=== PATIENT | male | born 1985 | race Hispanic/Latino ===

== ENCOUNTER 2017-11-17 12:29 | Emergency (ER) | payer OTHER ==
[2017-11-17 12:49] VITALS: BP 137/96; PULSE 89; RESP 16; TEMP 98; O2SAT 99
--- NOTE | 2017-11-17 13:40 | ED PDOC ---
HPI: Abdomen Time Seen by Provider: 11/17/17 13:25 Chief Complaint (Nursing): Abdominal Pain Chief Complaint (Provider): abd pain History Per: Patient Additional Complaint(s): 32-year-old male with history of type 1 diabetes presents to emergency department with right lower quadrant pain and gross hematuria that started earlier today. Patient denies fever or chills. He denies any nausea or vomiting. Patient is tolerating liquids and solids. He denies any associated back pain. PMD: none Past Medical History Reviewed: Historical Data, Nursing Documentation, Vital Signs Vital Signs: Last Vital Signs Temp 98.0 F 11/17/17 12:47 Pulse 89 11/17/17 12:47 Resp 16 11/17/17 12:47 BP 137/96 H 11/17/17 12:47 Pulse Ox 99 11/17/17 14:20 - Medical History PMH: Diabetes (Type 1) - Surgical History Surgical History: No Surg Hx - Family History Family History: States: No Known Family Hx - Living Arrangements Living Arrangements: With Family - Social History Current smoker - smoking cessation education provided: No Alcohol: None Drugs: Denies - Home Medications Home Medications: Ambulatory Orders Medication Instructions Recorded Ibuprofen [Motrin Tab] 800 mg PO Q8 PRN #20 tab 11/17/17 Levofloxacin [Levaquin] 500 mg PO DAILY #7 tablet 11/17/17 Tamsulosin [Flomax] 0.4 mg PO DAILY #7 cap 11/17/17 traMADol [Ultram] 50 mg PO QID #15 tab 11/17/17 - Allergies Allergies/Adverse Reactions: Allergies Allergy/AdvReac Type Severity Reaction Status Date / Time No Known Allergies Allergy Verified 11/17/17 12:47 Review of Systems ROS Statement: Except As Marked, All Systems Reviewed And Found Negative Constitutional: Negative for: Fever, Chills Cardiovascular: Negative for: Chest Pain Respiratory: Negative for: Cough Gastrointestinal: Positive for: Abdominal Pain (RLQ). Negative for: Nausea, Vomiting Genitourinary Male: Positive for: Hematuria. Negative for: Incontinence, Scrotal Pain, Penile Pain Musculoskeletal: Negative for: Back Pain Physical Exam - Reviewed Nursing Documentation Reviewed: Yes Vital Signs Reviewed: Yes - Physical Exam Appears: Positive for: Well, Non-toxic, No Acute Distress Skin: Negative for: Rash Eye Exam: Positive for: Normal appearance Cardiovascular/Chest: Positive for: Regular Rate, Rhythm Respiratory: Positive for: Normal Breath Sounds Gastrointestinal/Abdominal: Positive for: Soft, Tenderness (RLQ). Negative for : Distended, Guarding, Rebound Back: Negative for: L CVA Tenderness, R CVA Tenderness Extremity: Positive for: Normal ROM Neurologic/Psych: Positive for: Alert, Oriented - Laboratory Results Result Diagrams: 11/17/17 14:25 11/17/17 14:25 Urine dip results: Positive for: Leukocyte Esterase (large), Blood (large), Nitrate (positive). Negative for: Ketones, Glucose, Bilirubin, Protein - ECG O2 Sat by Pulse Oximetry: 99 Pulse Ox Interpretation: Normal - Other Rad CT abd and pelvis without contrast X-Ray: Read By Radiologist X-Ray Interpretation: see below Medical Decision Making Medical Decision Makin32 year old with hematuria and abd pain Plan: Urine dip CBC CMP CT abd and pelvis without contrast IVF IV toradol CT: FINDINGS: LOWER THORAX: Lung bases clear. No infiltrate effusion or basilar pneumothorax. There is a tiny hiatal hernia. Heart size within range of normal. No significant pericardial effusion. LIVER: Liver exhibits normal size measuring approximately 18 cm in CC dimension. No obvious hepatic mass collection or calcification. GALLBLADDER AND BILE DUCTS: Gallbladder is physiologically distended. No evidence of intraluminal gallbladder calculi. PANCREAS: The pancreas is slightly atrophic. No obvious pancreatic masses collections or calcifications. No significant pancreatic ductal dilatation. SPLEEN: Spleen is mildly enlarged measuring nearly 13 cm in AP dimension. No obvious splenic mass collection or calcification seen on this noncontrast study. ADRENALS: There are no adrenal lesions. KIDNEYS AND URETERS: The kidneys demonstrate symmetric size. There is a punctate calcifications seen upper pole right kidney. Mild right and sided hydronephrosis secondary to a tiny approximately 3.3 mm proximal right ureteral calculus there are several small calculi seen in the left kidney, the largest in the midpole left kidney measuring approximately 3.2 cm. No evidence of left-sided hydronephrosis. BLADDER: In the urinary bladder is incompletely distended which in part account slight thick-walled appearance. Muscular hypertrophy may contribute Cystitis would be less likely in a male patient though not completely excluded. REPRODUCTIVE: Unremarkable as visualized. APPENDIX: Normal-appearing retrocecal appendix best seen on axial image number [id number]. BOWEL: Evaluation of the bowel is limited due to the lack of oral contrast. Stomach is distended with food debris liquid and air. Visualized loops of small bowel exhibit normal contour and caliber. No evidence of acute mechanical small bowel obstruction. . No definitive evidence of abnormal mural wall thickening. . PERITONEUM: Unremarkable. No fluid collection. No free air. LYMPH NODES: Unremarkable. No enlarged lymph nodes. VASCULATURE: Unremarkable. No aortic aneurysm. BONES: Minor on multilevel degenerative spondylosis of the lower thoracic spine with chronic appearing endplate degenerative changes/ Schmorl's node formation. No acute compression fractures. Minor chronic appearing anterior stature loss of the T9, T10 and T11 segments. OTHER FINDINGS: None. IMPRESSION: Nephrolithiasis as described. . Small approximately 3.3 mm calculus proximal right ureter with mild right-sided hydronephrosis. Urinary bladder wall is slightly thickened in part due to incomplete distention and possible muscular hypertrophy. Cystitis not excluded. Mild splenomegaly. Liver is upper limits of normal in size. Hepatomegaly. Patient reports improvement of pain after Toradol was given. He is aware of all diagnostic testing results, all questions answered. 1 g IV Rocephin administered in the ED. Prescriptions provided for Flomax, Naprosyn and Levaquin. Advised fluids, rest and urology follow-up in one to 2 days, referral provided. Disposition - Clinical Impression Clinical Impression: Renal colic, Urinary tract infection - Patient ED Disposition Is Patient to be Admitted: No Counseled Patient/Family Regarding: Studies Performed, Diagnosis, Need For Followup, Rx Given - Disposition Referrals: Carlo Miles Jr., MD [Staff Provider] - Disposition: Routine/Home Disposition Time: 17:43 Condition: STABLE Additional Instructions: TAKE RX MEDS DIRECTED. DRINK PLENTY OF FLUIDS. USE STRAINER WHEN URINATING. FOLLOW UP IN 1-2 DAYS WITH UROLOGIST OR RETURN ANY TIME TO ED IF ACUTELY WORSE. Prescriptions: Ibuprofen [Motrin Tab] 800 mg PO Q8 PRN #20 tab PRN Reason: Pain, Moderate (4-7) Levofloxacin [Levaquin] 500 mg PO DAILY #7 tablet Tamsulosin [Flomax] 0.4 mg PO DAILY #7 cap traMADol [Ultram] 50 mg PO QID #15 tab Instructions: Renal Colic (DC), Urinary Tract Infection, Adult (DC) Forms: [employer] (Greek), [facility] ED School/Work Excuse Results - Lab Results Lab Results: 11/17/17 11/17/17 11/17/17 14:25 14:25 14:00 WBC 12.6 H RBC 5.62 Hgb 17.1 Hct 50.5 MCV 89.9 MCH 30.4 MCHC 33.8 RDW 13.2 Plt Count 243 MPV 8.1 Neut % (Auto) 89.6 H Lymph % (Auto) 4.2 L Roberts % (Auto) 5.6 Eos % (Auto) 0.2 Baso % (Auto) 0.4 Neut # (Auto) 11.3 H Lymph # (Auto) 0.5 L Roberts # (Auto) 0.7 Eos # (Auto) 0.0 Baso # (Auto) 0.1 Neutrophils % (Manual) 89 H Band Neutrophils % 1 Lymphocytes % (Manual) 4 L Monocytes % (Manual) 6 Platelet Estimate Normal RBC Morphology Normal Sodium 140 Potassium 4.1 Chloride 98 Carbon Dioxide 25 Anion Gap 21 H BUN 12 Creatinine 0.8 Est GFR ( Amer) > 60 Est GFR (Non-Af Amer) > 60 Random Glucose 186 H Calcium 9.3 Total Bilirubin 1.3 AST 23 ALT 35 Alkaline Phosphatase 72 Total Protein 7.8 Albumin 4.5 Globulin 3.4 Albumin/Globulin Ratio 1.3 Urine Color Red Urine Clarity Turbid Urine pH 6.0 Ur Specific Crocker 1.026 Urine Protein 100 Urine Glucose (UA) 150 Urine Ketones 80 Urine Blood Large Urine Nitrate Negative Urine Bilirubin Negative Urine Urobilinogen 0.2 Ur Leukocyte Esterase Negative Urine RBC (Auto) 40069 H Urine Microscopic WBC 198 H
[2017-11-17] MEDS: Sodium Chloride 0.9% 1,000 ML IV STA (14:31)
[2017-11-17 14:51] LABS: BASO # 0.1 K/uL (0.0-0.2); BASO % 0.4 % (0.0-2.0); EOS % 0.2 % (0.0-4.0); HEMOGLOBIN 17.1 g/dL (12.0-18.0); LYMPH # 0.5 K/uL (1.0-4.3); LYMPH % 4.2 % (20.0-40.0); MEAN CELL VOLUME 89.9 fl (80.0-94.0); MEAN CORPUSCULAR HEMOGLOBIN 30.4 pg (27.0-31.0); MEAN CORPUSCULAR HGB CONC 33.8 g/dL (33.0-37.0); MEAN PLATELET VOLUME 8.1 fl (7.2-11.7); MONO # 0.7 K/uL (0.0-0.8); MONO % 5.6 % (0.0-10.0); NEUT # 11.3 K/uL (1.8-7.0); NEUT % 89.6 % (50.0-75.0); NRBC % 0.1 % (0.0-0.0); PLATELET COUNT 243 K/uL (130-400); RBC 5.62 Mil/uL (4.40-5.90); RED CELL DISTRIBUTION WIDTH 13.2 % (11.5-14.5); WHITE BLOOD COUNT 12.6 K/uL (4.8-10.8)
[2017-11-17 15:00] LABS: ALB/GLOB RATIO 1.3 (1.0-2.1); ALBUMIN 4.5 g/dL (3.5-5.0); ALT/SGPT 35 U/L (21-72); AST/SGOT 23 U/L (17-59); BLOOD UREA NITROGEN 12 mg/dl (9-20); CALCIUM 9.3 mg/dL (8.4-10.2); GFR AFRICAN-AMERICAN > 60; GFR NON-AFRICAN AMERICAN > 60
[2017-11-17 15:06] LABS: URINE COLOR RED (YELLOW)
[2017-11-17 15:07] LABS: URINE CLARITY Turbid (Clear)
[2017-11-17 15:13] LABS: URINE GLUCOSE (UA) 150 mg/dL (Normal)
[2017-11-17 15:14] LABS: URINE BILIRUBIN NEGATIVE (NEGATIVE); URINE BLOOD LARGE (NEGATIVE); URINE PROTEIN 100 mg/dL (NEGATIVE); URINE UROBILINOGEN 0.2 mg/dL (0.2-1.0)
[2017-11-17 15:15] LABS: URINE LEUKOCYTE ESTERASE NEGATIVE Leu/uL (Negative)
--- NOTE | 2017-11-17 15:29 | CT ---
PROCEDURE: CT scan abdomen pelvis 11/17/2017 HISTORY: Dated 11/17/2017 right lower quadrant pain, hematuria COMPARISON: No prior TECHNIQUE: Contiguous axial images of the abdomen and pelvis performed without oral or intravenous contrast material. Additional 2D sagittal and coronal reformats generated. Radiation dose: Total exam DLP = 483.[address] exam was performed using one or more of the following dose reduction techniques: Automated exposure control, adjustment of the mA and/or kV according to patient size, and/or use of iterative reconstruction technique. FINDINGS: LOWER THORAX: Lung bases clear. No infiltrate effusion or basilar pneumothorax. There is a tiny hiatal hernia. Heart size within range of normal. No significant pericardial effusion. LIVER: Liver exhibits normal size measuring approximately 18 cm in CC dimension. No obvious hepatic mass collection or calcification. GALLBLADDER AND BILE DUCTS: Gallbladder is physiologically distended. No evidence of intraluminal gallbladder calculi. PANCREAS: The pancreas is slightly atrophic. No obvious pancreatic masses collections or calcifications. No significant pancreatic ductal dilatation. SPLEEN: Spleen is mildly enlarged measuring nearly 13 cm in AP dimension. No obvious splenic mass collection or calcification seen on this noncontrast study. ADRENALS: There are no adrenal lesions. KIDNEYS AND URETERS: The kidneys demonstrate symmetric size. There is a punctate calcifications seen upper pole right kidney. Mild right and sided hydronephrosis secondary to a tiny approximately 3.3 mm proximal right ureteral calculus there are several small calculi seen in the left kidney, the largest in the midpole left kidney measuring approximately 3.2 cm. No evidence of left-sided hydronephrosis. BLADDER: In the urinary bladder is incompletely distended which in part account slight thick-walled appearance. Muscular hypertrophy may contribute Cystitis would be less likely in a male patient though not completely excluded. REPRODUCTIVE: Unremarkable as visualized. APPENDIX: Normal-appearing retrocecal appendix best seen on axial image number [id number]. BOWEL: Evaluation of the bowel is limited due to the lack of oral contrast. Stomach is distended with food debris liquid and air. Visualized loops of small bowel exhibit normal contour and caliber. No evidence of acute mechanical small bowel obstruction. . No definitive evidence of abnormal mural wall thickening. . PERITONEUM: Unremarkable. No fluid collection. No free air. LYMPH NODES: Unremarkable. No enlarged lymph nodes. VASCULATURE: Unremarkable. No aortic aneurysm. BONES: Minor on multilevel degenerative spondylosis of the lower thoracic spine with chronic appearing endplate degenerative changes/ Schmorl's node formation. No acute compression fractures. Minor chronic appearing anterior stature loss of the T9, T10 and T11 segments. OTHER FINDINGS: None. IMPRESSION: Nephrolithiasis as described. . Small approximately 3.3 mm calculus proximal right ureter with mild right-sided hydronephrosis. Urinary bladder wall is slightly thickened in part due to incomplete distention and possible muscular hypertrophy. Cystitis not excluded. Mild splenomegaly. Liver is upper limits of normal in size. . Hepatomegaly.
[2017-11-17 15:38] LABS: BANDS 1 % (0-2); LYMPHOCYTE 4 % (20-50); MONOCYTE 6 % (0-10); NEUTROPHIL 89 % (42-75); PLATELET ESTIMATE NORMAL (NORMAL); TOTAL CELLS COUNTED 100
[2017-11-17] MEDS ORDERED: cefTRIAXone (Rocephin) 1 gm Inj ONE (15:52)
== END 2017-11-17 19:40 | disposition home or self-care (01) ==
LOC: H.ER 12:29
DX: N23 Unspecified renal colic (principal); N39.0 Urinary tract infection, site not specified; Z79.4 Long term (current) use of insulin
CPT/HCPCS: 74176; 80053; 81003; 85025; 87086; 96374; 96375; 99283; J0696; J1885; J7040